=== PATIENT | male | born 1940 | race Caucasian/White ===

== ENCOUNTER 2023-01-23 17:20 | Emergency (ER) | payer MEDICARE ==
[2023-01-23] MEDS ORDERED: Sodium Chloride 0.9% 500 ML IV ONE (18:08)
[2023-01-23] MEDS ORDERED: Sodium Chloride 0.9% 10 ML Syringe FLUSH PRN (18:08)
[2023-01-23 18:20] LABS: BASOPHILS ABSOLUTE AUTO 0.02 K/uL (0.00-0.10); BASOPHILS PERCENT AUTO 0.3 % (0.1-1.3); HEMATOCRIT 45.4 % (38.4-49.7); HEMOGLOBIN 15.5 g/dL (12.9-16.9); IMMATURE GRAN ABSOLUTE AUTO 0.04 K/uL (0.00-0.23); IMMATURE GRAN PERCENT AUTO 0.5 % (0.0-0.7); LYMPHOCYTES ABSOLUTE AUTO 0.67 K/uL (0.8-3.3); LYMPHOCYTES PERCENT AUTO 8.7 % (11.4-47.7); MEAN CORPUSCULAR HEMOGLOBIN 30.4 pg (31.6-35.5); MEAN CORPUSCULAR HGB CONC 34.1 g/dL (31.6-35.5); MONOCYTES ABSOLUTE AUTO 1.19 K/uL (0.20-0.90); MONOCYTES PERCENT AUTO 15.4 % (3.3-12.6); NEUTROPHILS ABSOLUTE AUTO 5.79 K/uL (1.0-7.6); NEUTROPHILS PERCENT AUTO 75.1 % (40.0-78.1); PLATELET COUNT,PLT 152 K/uL (130-375); WHITE BLOOD CELL COUNT,WBC 7.7 K/uL (3.2-11.0)
[2023-01-23 18:34] VITALS: BP 172/89; PULSE 82
[2023-01-23 18:50] LABS: A/G RATIO 0.9 (1.2-2.2); ALANINE AMINOTRANSFERASE,ALT 24 U/L (12-78); ALBUMIN 3.5 g/dL (3.4-5.0); ALKALINE PHOSPHATASE 70 U/L (46-116); ASPARTATE AMNIOTRANSFERASE,AST 30 U/L (15-37); BILIRUBIN TOTAL 0.7 mg/dL (0.2-1.0); BLOOD UREA NITROGEN,BUN 19 mg/dL (7-18); CALCIUM 8.8 mg/dL (8.5-10.1); CARBON DIOXIDE,CO2 26 mmol/L (21-32); CHLORIDE,CL 97 mmol/L (100-108); EST CRCL DRUG DOSING (CG) 60.36 mL/min; ESTIMATED GFR 74 mL/min (>60); GLUCOSE RANDOM 106 mg/dL (74-106); MAGNESIUM 1.9 mg/dL (1.8-2.4); POTASSIUM,K 3.9 mmol/L (3.6-5.2); PROTEIN TOTAL,TP 7.5 g/dL (6.4-8.2); SODIUM,NA 132 mmol/L (140-148); TSH ULTRASENSITIVE 1.078 uIU/mL (0.358-3.740)
[2023-01-23 18:51] LABS: ANION GAP 12.9 mmol/L (5.0-14.0)
== END 2023-01-23 19:40 | disposition home or self-care (01) ==
LOC: JP.ED 17:20
DX: U07.1 COVID-19 (principal); J06.9 Acute upper respiratory infection, unspecified; E86.0 Dehydration; I10 Essential (primary) hypertension; Z88.0 Allergy status to penicillin
CPT/HCPCS: 36415; 71045; 80053; 82550; 83735; 84443; 85025; 99285; J3490; J7040; U0002

== ENCOUNTER 2023-01-23 21:24 | Inpatient (IN) | payer MEDICARE, MEDICAID ==
[~2023-01-23 21:24] MED LIST: Pantoprazole 40 MG Vial IV SCH
[2023-01-23] MEDS ORDERED: Acetaminophen 325 MG Tab PO PRN (21:29)
[2023-01-23] MEDS ORDERED: Acetaminophen 500 MG Tab PO ONE (21:36)
[2023-01-23] MEDS ORDERED: Ondansetron 4 MG Tab.DIS PO PRN (22:28)
[2023-01-23] MEDS ORDERED: Ondansetron 4 MG/2 ML SDV IV PRN (22:28)
[2023-01-23] MEDS ORDERED: Morphine 2 MG/ML SYRINGE IVPUSH PRN (22:28)
[2023-01-23] MEDS ORDERED: Bisacodyl 5 MG Tab PO PRN (22:28)
[2023-01-23] MEDS ORDERED: REMDESIVIR 200 MG in Sodium Chloride 0.9% 250 ML IV ONE (22:28)
[2023-01-23] MEDS ORDERED: oxyCODONE 5 MG Tab PO PRN (22:28)
[2023-01-23] MEDS ORDERED: Docusate Sodium 100 MG Cap PO PRN (22:28)
[2023-01-23] MEDS ORDERED: Enoxaparin 40 MG/0.4 ML Syringe SUBCUT SCH (22:30)
[2023-01-23] MEDS ORDERED: Dexamethasone 4 MG/ML SDV IVPUSH SCH (22:45)
[2023-01-23 22:55] LABS: INR 1.1; PROTHROMBIN TIME 10.9 sec (9.2-10.6)
[2023-01-23 23:11] LABS: CREATINE KINASE,CK 318 U/L (39-308); FERRITIN 619 ng/ml (8-388)
[2023-01-23] MEDS: Sodium Chloride 0.9% 1,000 ML IV SCH (23:47)
[2023-01-24 02:16] LABS: APPEARANCE,URINE CLEAR (CLEAR); BILIRUBIN,URINE NEGATIVE (NEGATIVE); COLOR,URINE YELLOW (YELLOW); GLUCOSE,URINE NEGATIVE (NEGATIVE); KETONES,URINE 15 mg/dL (NEGATIVE); LEUKOCYTE ESTERASE,URINE NEGATIVE (NEGATIVE); NITRITE,URINE NEGATIVE (NEGATIVE); OCCULT BLOOD,URINE MODERATE (NEGATIVE); PROTEIN,URINE 100 mg/dL (NEGATIVE); UROBILINOGEN,URINE 0.2 EU/dL (0.2-1.0)
[2023-01-24 02:37] LABS: RBC,URINE 0-5 (0-5); WBC,URINE 0-5 (0-5)
[2023-01-24 02:38] LABS: AMORPHOUS SEDIMENT,URINE FEW; BACTERIA,URINE FEW; EPITHELIAL CELLS,URINE RARE; MUCUS,URINE NOT SEEN
[2023-01-24 06:23] LABS: BASOPHILS PERCENT AUTO 0.1 % (0.1-1.3); HEMATOCRIT 43.8 % (38.4-49.7); HEMOGLOBIN 15.1 g/dL (12.9-16.9); IMMATURE GRAN ABSOLUTE AUTO 0.03 K/uL (0.00-0.23); IMMATURE GRAN PERCENT AUTO 0.4 % (0.0-0.7); LYMPHOCYTES ABSOLUTE AUTO 0.75 K/uL (0.8-3.3); LYMPHOCYTES PERCENT AUTO 9.8 % (11.4-47.7); MEAN CORPUSCULAR HEMOGLOBIN 30.8 pg (31.6-35.5); MEAN CORPUSCULAR HGB CONC 34.5 g/dL (31.6-35.5); MEAN CORPUSCULAR VOLUME 89.4 fL (81.4-99.0); MONOCYTES ABSOLUTE AUTO 0.58 K/uL (0.20-0.90); MONOCYTES PERCENT AUTO 7.5 % (3.3-12.6); NEUTROPHILS ABSOLUTE AUTO 6.32 K/uL (1.0-7.6); NEUTROPHILS PERCENT AUTO 82.2 % (40.0-78.1); PLATELET COUNT,PLT 144 K/uL (130-375); WHITE BLOOD CELL COUNT,WBC 7.7 K/uL (3.2-11.0)
[2023-01-24 06:24] LABS: BASOPHILS ABSOLUTE AUTO 0.01 K/uL (0.00-0.10)
[2023-01-24 06:36] LABS: CALCIUM 8.2 mg/dL (8.5-10.1); CREATININE 0.9 mg/dL (0.8-1.3); EST CRCL DRUG DOSING (CG) 67.06 mL/min; MAGNESIUM 2.1 mg/dL (1.8-2.4); POTASSIUM,K 3.8 mmol/L (3.6-5.2)
[2023-01-24 06:42] LABS: ANION GAP 11.8 mmol/L (5.0-14.0)
[2023-01-24] MEDS ORDERED: REMDESIVIR 100 MG in Sodium Chloride 0.9% 100 ML IV SCH ×2 (09:00→17:00)
[2023-01-24] MEDS ORDERED: cloNIDine 0.1 MG Tab PO ONE (12:52)
[2023-01-24] MEDS: Dexamethasone 4 MG/ML SDV IVPUSH SCH (14:15)
[2023-01-24 15:12] LABS: A/G RATIO 0.8 (1.2-2.2); ALANINE AMINOTRANSFERASE,ALT 29 U/L (12-78); ALKALINE PHOSPHATASE 64 U/L (46-116); ASPARTATE AMNIOTRANSFERASE,AST 51 U/L (15-37); BILIRUBIN DIRECT 0.07 mg/dL (0.0-0.2); BILIRUBIN TOTAL 0.4 mg/dL (0.2-1.0)
[2023-01-24] MEDS ORDERED: Lisinopril 10 MG Tab PO SCH (16:30)
[2023-01-24] MEDS: Sodium Chloride 0.9% 1,000 ML IV SCH (16:54)
[2023-01-24] MEDS ORDERED: amLODIPine 5 MG Tab PO ONE (20:47)
[2023-01-24] MEDS ORDERED: Pantoprazole 40 MG Tab.CR PO SCH (21:00)
[2023-01-24] MEDS ORDERED: Enoxaparin 40 MG/0.4 ML Syringe SUBCUT SCH (21:00)
[2023-01-25] MEDS ORDERED: amLODIPine 5 MG Tab PO SCH (09:00)
[2023-01-25 12:25] VITALS: BP 148/89; PULSE 77
[2023-01-25] MEDS: Dexamethasone 4 MG/ML SDV IVPUSH SCH (13:37)
== END 2023-01-25 15:05 | disposition home or self-care (01) | DRG 177 ==
LOC: JP.ED 21:24 → JP.ICU 23:02
PROVIDERS: ADMIT Internal Medicine; ATTEND Internal Medicine
PROC: XW033E5 Introduction of Remdesivir Anti-infective into Peripheral Vein, Percutaneous Approach, New Technology Group 5 (ICD-10-PCS; principal; 2023-01-23)
PROC: 3E0333Z Introduction of Anti-inflammatory into Peripheral Vein, Percutaneous Approach (ICD-10-PCS; 2023-01-23)
PROC: 8E0ZXY6 Isolation (ICD-10-PCS; 2023-01-23)
DX: U07.1 COVID-19 (principal); J96.01 Acute respiratory failure with hypoxia; E87.1 Hypo-osmolality and hyponatremia; I10 Essential (primary) hypertension; E86.0 Dehydration; R54 Age-related physical debility; R60.0 Localized edema; Z86.16 Personal history of COVID-19; Z79.899 Other long term (current) drug therapy; Z88.0 Allergy status to penicillin
CPT/HCPCS: 36415; 80048; 80076; 81001; 82550; 82728; 83605; 83735; 84145; 85025; 85379; 85610; 86140; 97110-GP; 97161-GP; 97165-GO; 99285; A9270-GY; C9113; J1100; J1650; J3490; J7030; J7050